=== PATIENT | female | born 2000 | race Caucasian/White ===

== ENCOUNTER 2020-03-24 13:16 | Emergency (ER) | payer OTHER ==
[~2020-03-24] VITALS: Ht 160 cm; Wt 72.7 kg
[2020-03-24 13:27] VITALS: BP 124/65
[2020-03-24 14:47] LABS: COVID AG,FIA SOURCE NASOPHARYNGEAL
== END 2020-03-24 14:31 | disposition left against medical advice (07) ==
LOC: EMS 13:16
DX: Z20.828 Contact with and (suspected) exposure to other viral communicable diseases (principal); Z53.21 Procedure and treatment not carried out due to patient leaving prior to being seen by health care provider
CPT/HCPCS: 87426

== ENCOUNTER 2020-03-25 08:33 | Emergency (ER) | payer OTHER ==
[~2020-03-25] VITALS: Ht 160 cm; Wt 72.7 kg
[2020-03-25 08:34] VITALS: BP 120/87
== END 2020-03-25 09:06 | disposition home or self-care (01) ==
LOC: EMS 08:33
DX: Z20.828 Contact with and (suspected) exposure to other viral communicable diseases (principal); F17.210 Nicotine dependence, cigarettes, uncomplicated; F12.90 Cannabis use, unspecified, uncomplicated
CPT/HCPCS: Z7502